=== PATIENT | female | born 1930 | race Hispanic/Latino ===

== ENCOUNTER 2016-11-19 10:34 | Emergency (ER) | payer MEDICARE ==
[2016-11-19 12:22] LABS: Basophils % (Auto) 0.2 % (0.0-1.8); Eosinophils % (Auto) 0.7 % (0.0-4.3); Hemoglobin 14.3 gm/dl (10.1-14.3); Mean Corpuscular HGB Conc 33 % (30-34); Mean Corpuscular Hemoglobin 32 pg (28-32); Mean Corpuscular Volume 95 fl (79-97); Platelet Count 143 K/mm3 (140-440); Red Blood Count 4.54 M/mm3 (3.65-5.03); Red Cell Distribution Width 12.8 % (13.2-15.2); White Blood Count 9.1 K/mm3 (4.5-11.0)
[2016-11-19 12:38] LABS: Alanine Aminotransferase 8 units/L (7-56); Albumin 3.9 g/dL (3.9-5); Albumin/Globulin Ratio 1.9 %; Alkaline Phosphatase 57 units/L (35-129); Anion Gap 14 mmol/L; BUN/Creatinine Ratio 24.28; Blood Urea Nitrogen 17 mg/dL (7-17); Calcium 9.2 mg/dL (8.4-10.2); Carbon Dioxide 30 mmol/L (22-30); Chloride 102.1 mmol/L (98-107); Glucose 104 mg/dL (65-100); Potassium 4.9 mmol/L (3.6-5.0); Sodium 141 mmol/L (137-145)
[2016-11-19 13:50] LABS: Bilirubin,Urine NEG (Negative); Blood,Urine SM (Negative); Ketones,Urine NEG (Negative); Leukocyte Esterase,Urine LG (Negative); Mucus,Urine FEW /HPF; Nitrite,Urine NEG (Negative); Protein,Urine <15 mg/dL mg/dL (Negative); Urobilinogen,Urine < 2.0 mg/dL (<2.0)
[2016-11-19] MEDS ORDERED: MACROBID PO ONE (14:02)
--- NOTE | 2016-11-19 14:03 | Emergency Department Report ---
ED Abdominal Pain HPI - General Chief Complaint: Back Pain/Injury Stated Complaint: ABD PAIN/BACK PAIN Time Seen by Provider: 11/19/16 11:53 Source: patient, EMS Mode of arrival: Stretcher Limitations: No Limitations - History of Present Illness Initial Comments: 86-year-old female with a past medical history of hypertension, atrial fibrillation on Xarelto, high cholesterol and previous hysterectomy presents to the hospital complaints of abdominal pain since 8 AM. Pain was in the right upper quadrant radiating to the back, moderate in intensity, constant, aching in nature. They have since resolved spontaneously without medication. She was sent by her food handler Dr Esquivel sent the pt to the ER for evaluation. Positive nausea and chills without vomiting, fever, melena, hematochezia, or diarrhea. No change in by mouth intake. Pain started prior to eating breakfast. Severity scale (0 -10): 4 - Related Data Home Medications Medication Instructions Recorded Confirmed Last Taken Calcium Carb/Vitamin D3/Vit K1 1 tab PO DAILY 11/19/16 11/19/16 11/18/16 [Citracal Soft Chew] Ergocalciferol (Vitamin D2) 1 tab PO DAILY 11/19/16 11/19/16 11/18/16 [Vitamin D2] Fish Oil 1 tab PO DAILY 11/19/16 11/19/16 11/18/16 Furosemide [Lasix] 20 mg PO 3XW 11/19/16 11/19/16 11/18/16 LORazepam [Ativan] 0.5 mg PO QHS 11/19/16 11/19/16 11/18/16 Lisinopril [Zestril] 5 mg PO QDAY 11/19/16 11/19/16 11/18/16 Previous Rx's Medication Instructions Recorded Last Taken Type Rivaroxaban [Xarelto] 20 mg PO QDAY #30 tablet 06/07/13 11/18/16 Rx Potassium Chloride [Klor-Con 8] 8 meq PO QDAY 30 Days 06/24/13 11/18/16 Rx Nitrofurantoin [place]/M-Cryst 100 mg PO Q12HR #10 capsule 11/19/16 Unknown Rx [Macrobid CAP] Ondansetron [Zofran Odt] 4 mg PO Q8HR PRN #20 tab.rapdis 11/19/16 Unknown Rx traMADol [Ultram 50 MG tab] 50 mg PO Q6HR PRN #20 tablet 11/19/16 Unknown Rx Allergies Allergy/AdvReac Type Severity Reaction Status Date / Time No Known Allergies Allergy Verified 06/16/13 17:37 ED Review of Systems ROS: Stated complaint: ABD PAIN/BACK PAIN Other details as noted in HPI Comment: All other systems reviewed and negative Other: Constitutional: No fevers chills Eyes: No eye pain visual changes ENT: No ear pain or throat pain Neck: Denies pain Respiratory: Denies cough wheezing shortness of breath Cardiovascular: Denies chest pain, palpitations, syncope GI: As per HPI : Denies dysuria Musculoskeletal: Denies back pain Skin: Denies rash, lesions, erythema Neurologic: Denies headache, numbness, weakness Psychiatric: Denies suicidal ideation, hallucinations ED Past Medical Hx - Past Medical History Previous Medical History?: Yes Hx Hypertension: Yes (pt takes HCTZ, and lisopril on and off depending on BP) Hx Heart Attack/AMI: No Hx Liver Disease: No Hx Renal Disease: No Hx Sickle Cell Disease: No Hx Seizures: No Hx Asthma: No Hx COPD: No Additional medical history: Elevated cholesterol. Atrial fibrillation - Surgical History Past Surgical History?: Yes Hx Pacemaker: No Hx Internal Defibrillator: No Additional Surgical History: hyster. 1970s - Social History Smoking Status: Never Smoker Substance Use Type: None - Medications Home Medications: Home Medications Medication Instructions Recorded Confirmed Last Taken Type Rivaroxaban [Xarelto] 20 mg PO QDAY #30 tablet 06/07/13 11/19/16 11/18/16 Rx Potassium Chloride [Klor-Con 8] 8 meq PO QDAY 30 Days 06/24/13 11/19/16 Rx Calcium Carb/Vitamin D3/Vit K1 1 tab PO DAILY 11/19/16 11/19/16 11/18/16 History [Citracal Soft Chew] Ergocalciferol (Vitamin D2) 1 tab PO DAILY 11/19/16 11/19/16 11/18/16 History [Vitamin D2] Fish Oil 1 tab PO DAILY 11/19/16 11/19/16 11/18/16 History Furosemide [Lasix] 20 mg PO 3XW 11/19/16 11/19/16 11/18/16 History LORazepam [Ativan] 0.5 mg PO QHS 11/19/16 11/19/16 11/18/16 History Lisinopril [Zestril] 5 mg PO QDAY 11/19/16 11/19/16 11/18/16 History Nitrofurantoin [place]/M-Cryst 100 mg PO Q12HR #10 capsule 11/19/16 Unknown Rx [Macrobid CAP] Ondansetron [Zofran Odt] 4 mg PO Q8HR PRN #20 tab.rapdis 11/19/16 Unknown Rx traMADol [Ultram 50 MG tab] 50 mg PO Q6HR PRN #20 tablet 11/19/16 Unknown Rx ED Physical Exam - General Limitations: No Limitations - Other Other exam information: General: No limitations, patient is alert in no acute distress Head exam: Atraumatic, normocephalic Eyes exam: Normal appearance ENT: Moist mucous membrane, normal oropharynx Neck exam: Normal inspection, full range of motion, no meningismus nontender Respiratory exam: Clear to auscultation bilateral, no wheezes, rales, crackles Cardiovascular: Irregular heart rhythm normal rate Abdomen: Soft, nondistended, and nontender, with normal bowel sounds, no rebound, or guarding Extremity: Full range of motion normal inspection no deformity Back: Normal Inspection, full range of motion, no tenderness Neurologic: Alert, oriented x3, cranial nerves intact, no motor or sensory deficit Psychiatric: normal affect, normal mood Skin: Warm, dry, intact ED Course Vital Signs 11/19/16 11:34 Temperature 98.1 F Pulse Rate 74 Respiratory 16 Rate Blood Pressure 165/78 [Right] O2 Sat by Pulse 97 Oximetry - Reevaluation(s) Reevaluation #1: 11/19/16 14:33 pt remained pain free in ED since my initial evaluation and declined pain medications ED Medical Decision Making - Lab Data Result diagrams: 11/19/16 12:03 11/19/16 12:03 Lab Results 11/19/16 11/19/16 11/19/16 Range/Units 12:03 12:03 12:03 WBC 9.1 (4.5-11.0) K/mm3 RBC 4.54 (3.65-5.03) M/mm3 Hgb 14.3 (10.1-14.3) gm/dl Hct 43.0 H (30.3-42.9) % MCV 95 (79-97) fl MCH 32 (28-32) pg MCHC 33 (30-34) % RDW 12.8 L (13.2-15.2) % Plt Count 143 (140-440) K/mm3 Lymph % (Auto) 11.1 L (13.4-35.0) % [place] % (Auto) 5.0 (0.0-7.3) % Eos % (Auto) 0.7 (0.0-4.3) % Baso % (Auto) 0.2 (0.0-1.8) % Lymph # 1.0 L (1.2-5.4) K/mm3 [place] # 0.5 (0.0-0.8) K/mm3 Eos # 0.1 (0.0-0.4) K/mm3 Baso # 0.0 (0.0-0.1) K/mm3 Seg Neutrophils % 83.0 H (40.0-70.0) % Seg Neutrophils # 7.5 (1.8-7.7) K/mm3 Sodium 141 (137-145) mmol/L Potassium 4.9 (3.6-5.0) mmol/L Chloride 102.1 (98-107) mmol/L Carbon Dioxide 30 (22-30) mmol/L Anion Gap 14 mmol/L BUN 17 (7-17) mg/dL Creatinine 0.7 (0.7-1.2) mg/dL Estimated GFR > 60 ml/min BUN/Creatinine Ratio 24.28 % Glucose 104 H (65-100) mg/dL Calcium 9.2 (8.4-10.2) mg/dL Total Bilirubin 1.00 (0.1-1.2) mg/dL AST 15 (5-40) units/L ALT 8 (7-56) units/L Alkaline Phosphatase 57 (35-129) units/L Total Protein 6.0 L (6.3-8.2) g/dL Albumin 3.9 (3.9-5) g/dL Albumin/Globulin Ratio 1.9 % Lipase 40 (13-60) units/L Urine Color (Yellow) Urine Turbidity (Clear) Urine pH (5.0-7.0) Ur Specific [place] (1.003-1.030) Urine Protein (Negative) mg/dL Urine Glucose (UA) (Negative) mg/dL Urine Ketones (Negative) mg/dL Urine Blood (Negative) Urine Nitrite (Negative) Urine Bilirubin (Negative) Urine Urobilinogen (<2.0) mg/dL Ur Leukocyte Esterase (Negative) Urine WBC (Auto) (0.0-6.0) /HPF Urine RBC (Auto) (0.0-6.0) /HPF U Epithel Cells (Auto) (0-13.0) /HPF Urine Mucus /HPF 11/19/16 Range/Units 13:36 WBC (4.5-11.0) K/mm3 RBC (3.65-5.03) M/mm3 Hgb (10.1-14.3) gm/dl Hct (30.3-42.9) % MCV (79-97) fl MCH (28-32) pg MCHC (30-34) % RDW (13.2-15.2) % Plt Count (140-440) K/mm3 Lymph % (Auto) (13.4-35.0) % [place] % (Auto) (0.0-7.3) % Eos % (Auto) (0.0-4.3) % Baso % (Auto) (0.0-1.8) % Lymph # (1.2-5.4) K/mm3 [place] # (0.0-0.8) K/mm3 Eos # (0.0-0.4) K/mm3 Baso # (0.0-0.1) K/mm3 Seg Neutrophils % (40.0-70.0) % Seg Neutrophils # (1.8-7.7) K/mm3 Sodium (137-145) mmol/L Potassium (3.6-5.0) mmol/L Chloride (98-107) mmol/L Carbon Dioxide (22-30) mmol/L Anion Gap mmol/L BUN (7-17) mg/dL Creatinine (0.7-1.2) mg/dL Estimated GFR ml/min BUN/Creatinine Ratio % Glucose (65-100) mg/dL Calcium (8.4-10.2) mg/dL Total Bilirubin (0.1-1.2) mg/dL AST (5-40) units/L ALT (7-56) units/L Alkaline Phosphatase (35-129) units/L Total Protein (6.3-8.2) g/dL Albumin (3.9-5) g/dL Albumin/Globulin Ratio % Lipase (13-60) units/L Urine Color Yellow (Yellow) Urine Turbidity Clear (Clear) Urine pH 6.0 (5.0-7.0) Ur Specific [place] 1.010 (1.003-1.030) Urine Protein <15 mg/dl (Negative) mg/dL Urine Glucose (UA) Neg (Negative) mg/dL Urine Ketones Neg (Negative) mg/dL Urine Blood Sm (Negative) Urine Nitrite Neg (Negative) Urine Bilirubin Neg (Negative) Urine Urobilinogen < 2.0 (<2.0) mg/dL Ur Leukocyte Esterase Lg (Negative) Urine WBC (Auto) 9.0 H (0.0-6.0) /HPF Urine RBC (Auto) 2.0 (0.0-6.0) /HPF U Epithel Cells (Auto) 1.0 (0-13.0) /HPF Urine Mucus Few /HPF - Radiology Data Radiology results: report reviewed (ultrasound abdomen: Cholelithiasis) - Medical Decision Making Patient has increased WBC and therefore we cover with Macrobid. Ultrasound positive for cholelithiasis without cholecystitis. Patient does not have any pain during ED stay. Will be covered with medication in case she experiences biliary colic and surgery referral. - Differential Diagnosis cholecystitis/lithiasis, PUD, pancreatitis, UTI Critical Care Time: No Critical care attestation.: If time is entered above; I have spent that time in minutes in the direct care of this critically ill patient, excluding procedure time. ED Disposition Clinical Impression: Cholelithiasis, Urine leukocytes increased, Chronic atrial fibrillation Disposition: DISCHARGED TO HOME OR SELFCARE Is pt being admited?: No Condition: Stable Instructions: Biliary Colic (ED), Urinary Tract Infection in Women (ED) Additional Instructions: Take the medication as prescribed. Return symptoms worsen. Follow-up with the surgeon provided to discuss possible removal of your gallbladder. Prescriptions: Nitrofurantoin [place]/M-Cryst [Macrobid CAP] 100 mg PO Q12HR #10 capsule Ondansetron [Zofran Odt] 4 mg PO Q8HR PRN #20 tab.rapdis PRN Reason: Nausea And Vomiting traMADol [Ultram 50 MG tab] 50 mg PO Q6HR PRN #20 tablet PRN Reason: Pain Referrals: PRIMARY CARE, [Primary Care Provider] - 3-5 Days MATT OWENS MD [Staff Physician] - 3-5 Days (surgeon ) Time of Disposition: 15:01
--- NOTE | 2016-11-19 14:13 | Ultrasound Report ---
ULTRASOUND ABDOMEN COMPLETE: Technique: Transabdominal ultrasound with color Doppler interrogation. History: Right upper quadrant abdominal pain. Findings: The liver is normal size, contour and echotexture. There are multiple shadowing gallstones within the gallbladder. Gallbladder wall thickness is borderline measuring 3 mm. No biliary dilatation or surrounding fluid. The visualized portions of the pancreas including the head and proximal body are within normal limits. The kidneys demonstrate no hydronephrosis or mass. Cortical thickness and echogenicity are within normal limits bilaterally. The spleen and aorta are within normal limits. No aneurysmal dilatation is noted. No ascites. The bladder is unremarkable. IMPRESSION: Cholelithiasis.
[2016-11-19 16:21] VITALS: BP 147/69
== END 2016-11-19 16:15 | disposition home or self-care (01) ==
LOC: ED 10:34
DX: K80.20 Calculus of gallbladder without cholecystitis without obstruction (principal); I48.2 Chronic atrial fibrillation; D72.829 Elevated white blood cell count, unspecified; I10 Essential (primary) hypertension; E78.00 Pure hypercholesterolemia, unspecified; Z90.710 Acquired absence of both cervix and uterus
CPT/HCPCS: 36415; 76700; 80053; 81001; 83690; 85025; 87076; 87086; 87186

== ENCOUNTER 2017-09-01 07:44 | Emergency (ER) | payer MEDICARE ==
[2017-09-01 08:32] LABS: Basophils % (Auto) 0.4 % (0.0-1.8); Eosinophils # (Auto) 0.2 K/mm3 (0.0-0.4); Eosinophils % (Auto) 2.7 % (0.0-4.3); Hematocrit 38.6 % (30.3-42.9); Lymphocytes # (Auto) 1.1 K/mm3 (1.2-5.4); Lymphocytes % (Auto) 18.1 % (13.4-35.0); Mean Corpuscular HGB Conc 34 % (30-34); Mean Corpuscular Hemoglobin 32 pg (28-32); Mean Corpuscular Volume 94 fl (79-97); Monocytes # (Auto) 0.4 K/mm3 (0.0-0.8); Platelet Count 190 K/mm3 (140-440); Red Blood Count 4.12 M/mm3 (3.65-5.03); Red Cell Distribution Width 13.7 % (13.2-15.2)
[2017-09-01] MEDS ORDERED: NORCO 5/325 PO ONE (08:43)
[2017-09-01 08:51] LABS: Alanine Aminotransferase 6 units/L (7-56); Albumin 3.5 g/dL (3.9-5); BUN/Creatinine Ratio 27; Blood Urea Nitrogen 19 mg/dL (7-17); Calcium 8.9 mg/dL (8.4-10.2); Hemolysis Index 7
--- NOTE | 2017-09-01 08:51 | Emergency Department Report ---
ED Female HPI - General Chief complaint: Urogenital-Female Stated complaint: BLOOD IN URINE Time Seen by Provider: 09/01/17 08:02 Source: patient, family, EMS Mode of arrival: Stretcher Limitations: Other - History of Present Illness Initial comments: Ms. Tree bonds is a pleasant 87-year-old female patient with history of atrial fibrillation on Xarelto. She experienced gradual onset of epigastric pain earlier this morning and yesterday evening. Pain then radiated to the suprapubic region. She now has intermittent left lower quadrant pain, mild in severity. Sharp in nature. She also notices hematuria. Denies dysuria. No history of kidney stones. No history of recent UTI. No previous history of hematuria. She does have cholelithiasis. Normally epigastric pain is related to gallstones. She recently finished 2 courses of antibiotics since . She was unable to recall the name of the first antibiotic. The second antibiotic was amoxicillin. She otherwise has been in good health. After I finished evalutation, PCP contacted me here in the ED. PCP stated that she finished Tamiflu, Levaquin and Augmentin recently. PCP was concerned for GI bleed. - Related Data Home Medications Medication Instructions Recorded Confirmed Last Taken Calcium Carb/Vitamin D3/Vit K1 1 tab PO DAILY 11/19/16 11/19/16 11/18/16 [Citracal Soft Chew] Ergocalciferol (Vitamin D2) 1 tab PO DAILY 11/19/16 11/19/16 11/18/16 [Vitamin D2] Fish Oil 1 tab PO DAILY 11/19/16 11/19/16 11/18/16 Furosemide [Lasix] 20 mg PO 3XW 11/19/16 11/19/16 11/18/16 LORazepam [Ativan] 0.5 mg PO QHS 11/19/16 11/19/16 11/18/16 Lisinopril [Zestril] 5 mg PO QDAY 11/19/16 11/19/16 11/18/16 Previous Rx's Medication Instructions Recorded Last Taken Type Rivaroxaban [Xarelto] 20 mg PO QDAY #30 tablet 06/07/13 11/18/16 Rx Potassium Chloride [Klor-Con 8] 8 meq PO QDAY 30 Days tablet 06/24/13 11/18/16 Rx Nitrofurantoin [place]/M-Cryst 100 mg PO Q12HR #10 capsule 11/19/16 Unknown Rx [Macrobid CAP] Ondansetron [Zofran Odt] 4 mg PO Q8HR PRN #20 tab.rapdis 11/19/16 Unknown Rx traMADol [Ultram 50 MG tab] 50 mg PO Q6HR PRN #20 tablet 11/19/16 Unknown Rx Allergies Allergy/AdvReac Type Severity Reaction Status Date / Time No Known Allergies Allergy Verified 06/16/13 17:37 ED Review of Systems ROS: Stated complaint: BLOOD IN URINE Other details as noted in HPI Comment: All other systems reviewed and negative Constitutional: denies: fever, malaise Respiratory: denies: cough Cardiovascular: denies: chest pain ED Past Medical Hx - Past Medical History Previous Medical History?: Yes Hx Hypertension: Yes (pt takes HCTZ, and lisopril on and off depending on BP) Hx Heart Attack/AMI: No Hx Liver Disease: No Hx Renal Disease: No Hx Sickle Cell Disease: No Hx Seizures: No Hx Asthma: No Hx COPD: No Additional medical history: Elevated cholesterol. Atrial fibrillation - Surgical History Hx Pacemaker: No Hx Internal Defibrillator: No Additional Surgical History: hyster. 1970s - Social History Smoking Status: Never Smoker Substance Use Type: None - Medications Home Medications: Home Medications Medication Instructions Recorded Confirmed Last Taken Type Rivaroxaban [Xarelto] 20 mg PO QDAY #30 tablet 06/07/13 11/19/16 11/18/16 Rx Potassium Chloride [Klor-Con 8] 8 meq PO QDAY 30 Days tablet 06/24/13 11/19/16 11/18/16 Rx Calcium Carb/Vitamin D3/Vit K1 1 tab PO DAILY 11/19/16 11/19/16 11/18/16 History [Citracal Soft Chew] Ergocalciferol (Vitamin D2) 1 tab PO DAILY 11/19/16 11/19/16 11/18/16 History [Vitamin D2] Fish Oil 1 tab PO DAILY 11/19/16 11/19/16 11/18/16 History Furosemide [Lasix] 20 mg PO 3XW 11/19/16 11/19/16 11/18/16 History LORazepam [Ativan] 0.5 mg PO QHS 11/19/16 11/19/16 11/18/16 History Lisinopril [Zestril] 5 mg PO QDAY 11/19/16 11/19/16 11/18/16 History Nitrofurantoin [place]/M-Cryst 100 mg PO Q12HR #10 capsule 11/19/16 Unknown Rx [Macrobid CAP] Ondansetron [Zofran Odt] 4 mg PO Q8HR PRN #20 tab.rapdis 11/19/16 Unknown Rx traMADol [Ultram 50 MG tab] 50 mg PO Q6HR PRN #20 tablet 11/19/16 Unknown Rx ED Physical Exam - General Limitations: Other General appearance: alert, in no apparent distress - Head Head exam: Present: atraumatic, normocephalic - Eye Eye exam: Present: normal appearance. Absent: scleral icterus, conjunctival injection, nystagmus Pupils: Present: normal accommodation - ENT ENT exam: Present: normal exam, normal orophraynx, mucous membranes moist - Neck Neck exam: Present: normal inspection. Absent: meningismus - Respiratory Respiratory exam: Present: normal lung sounds bilaterally. Absent: respiratory distress, wheezes - Cardiovascular Cardiovascular Exam: Present: regular rate, normal rhythm, normal heart sounds. Absent: systolic murmur, diastolic murmur, rubs, gallop - GI/Abdominal GI/Abdominal exam: Present: soft, normal bowel sounds. Absent: distended, tenderness, guarding, rebound - Extremities Exam Extremities exam: Present: normal inspection - Back Exam Back exam: Present: normal inspection. Absent: CVA tenderness (R), CVA tenderness (L) - Neurological Exam Neurological exam: Present: alert, oriented X3 - Psychiatric Psychiatric exam: Present: normal affect, normal mood - Skin Skin exam: Present: warm, dry, intact, normal color. Absent: rash ED Course Vital Signs 09/01/17 09/01/17 09/01/17 07:44 09:20 09:25 Temperature 98 F Pulse Rate 93 H Respiratory 16 14 Rate Blood Pressure 120/78 Blood Pressure [Left] O2 Sat by Pulse 99 98 99 Oximetry 09/01/17 09/01/17 09/01/17 09:30 09:32 09:56 Temperature 97.9 F Pulse Rate 80 Respiratory 14 Rate Blood Pressure 168/89 168/89 Blood Pressure 171/87 [Left] O2 Sat by Pulse 100 98 85 Oximetry 09/01/17 09/01/17 09/01/17 10:00 10:06 10:16 Temperature Pulse Rate 97 H 90 Respiratory 18 14 15 Rate Blood Pressure 167/82 167/82 Blood Pressure [Left] O2 Sat by Pulse 99 97 Oximetry 09/01/17 10:30 Temperature Pulse Rate 81 Respiratory 19 Rate Blood Pressure 154/80 Blood Pressure [Left] O2 Sat by Pulse 98 Oximetry ED Medical Decision Making - Lab Data Result diagrams: 09/01/17 08:17 09/01/17 08:17 Laboratory Results - last 24 hr 09/01/17 09/01/17 09/01/17 08:17 08:17 09:57 WBC 5.9 RBC 4.12 Hgb 13.0 Hct 38.6 MCV 94 MCH 32 MCHC 34 RDW 13.7 Plt Count 190 Lymph % (Auto) 18.1 [place] % (Auto) 7.0 Eos % (Auto) 2.7 Baso % (Auto) 0.4 Lymph # 1.1 L [place] # 0.4 Eos # 0.2 Baso # 0.0 Seg Neutrophils % 71.8 H Seg Neutrophils # 4.3 Sodium 139 Potassium 4.0 Chloride 104.0 Carbon Dioxide 26 Anion Gap 13 BUN 19 H Creatinine 0.7 Estimated GFR > 60 BUN/Creatinine Ratio 27 Glucose 101 H Calcium 8.9 Total Bilirubin 0.80 AST 12 ALT 6 L Alkaline Phosphatase 45 Total Protein 6.0 L Albumin 3.5 L Albumin/Globulin Ratio 1.4 Urine Color Red Urine Turbidity Clear Urine pH 6.0 Ur Specific [place] 1.010 Urine Protein 100 mg/dl Urine Glucose (UA) Neg Urine Ketones Neg Urine Blood Mod Urine Nitrite Neg Urine Bilirubin Neg Urine Urobilinogen < 2.0 Ur Leukocyte Esterase Neg Urine WBC (Auto) > 182.0 H Urine RBC (Auto) > 182.0 Urine WBC Clumps 3+ Urine Yeast (Bud[place]) 3+ Urine Sperm 2+ Laboratory Results - last 24 hr 09/01/17 09/01/17 09/01/17 08:17 08:17 09:57 WBC 5.9 RBC 4.12 Hgb 13.0 Hct 38.6 MCV 94 MCH 32 MCHC 34 RDW 13.7 Plt Count 190 Lymph % (Auto) 18.1 [place] % (Auto) 7.0 Eos % (Auto) 2.7 Baso % (Auto) 0.4 Lymph # 1.1 L [place] # 0.4 Eos # 0.2 Baso # 0.0 Seg Neutrophils % 71.8 H Seg Neutrophils # 4.3 Sodium 139 Potassium 4.0 Chloride 104.0 Carbon Dioxide 26 Anion Gap 13 BUN 19 H Creatinine 0.7 Estimated GFR > 60 BUN/Creatinine Ratio 27 Glucose 101 H Calcium 8.9 Total Bilirubin 0.80 AST 12 ALT 6 L Alkaline Phosphatase 45 Total Protein 6.0 L Albumin 3.5 L Albumin/Globulin Ratio 1.4 Urine Color Red Urine Turbidity Clear Urine pH 6.0 Ur Specific [place] 1.010 Urine Protein 100 mg/dl Urine Glucose (UA) Neg Urine Ketones Neg Urine Blood Mod Urine Nitrite Neg Urine Bilirubin Neg Urine Urobilinogen < 2.0 Ur Leukocyte Esterase Neg Urine WBC (Auto) > 182.0 H Urine RBC (Auto) > 182.0 Urine WBC Clumps 3+ Urine Yeast (Budding) 3+ Urine Sperm 2+ - Medical Decision Making Ms. Leavitt presents with hematuria. LLQ resolved spontaneously. She is pain free now. UA suggestive of hemorrhagic cystitis with pyuria and multiple red cells. PCP Dr. Flores will provide follow up. She will refer patient to urologist if needed. She requested ciprofloxacin. rx provided for ciprofloxacin Critical care attestation.: If time is entered above; I have spent that time in minutes in the direct care of this critically ill patient, excluding procedure time. ED Disposition Clinical Impression: Hemorrhagic cystitis Disposition: DC-01 TO HOME OR SELFCARE Is pt being admited?: No Does the pt Need Aspirin: No Condition: Stable Instructions: Urinary Tract Infection in Women (ED) Referrals: KETAN FLORES MD [Staff Physician] - 3-5 Days Time of Disposition: 11:39
--- NOTE | 2017-09-01 09:09 | Cat Scan Report ---
CT ABDOMEN PELVIS WITHOUT CONTRAST: HISTORY: Left lower quadrant abdominal pain, hematuria. COMPARISON: none. TECHNIQUE: Helical CT in 1.25mm intervals without IV contrast. Sagittal and coronal reconstructions. FINDINGS: Lung bases: Adequately aerated. Liver: Normal. Biliary system: There are 2 calcified gallstones within the gallbladder measuring approximately 1 cm. No evidence for biliary dilatation or inflammation. Pancreas: Normal. Spleen: Normal. Kidneys/ureters/bladder: The right kidney and collecting system are within normal limits. There are 2 stones measuring 3 mm and 6 mm in the mid left kidney. There are also 2 stones in the mid-distal left ureter. A 4 mm stone is identified at the level of S1 on image 232. A 5.6 mm stone is identified at the level of S4 on image 267. Minimal left hydroureter is identified. The bladder is poorly imaged secondary to streak artifact from right hip replacement. There is suggestion of a left ureterocele. The remainder of the bladder is unremarkable. Adrenal glands: Normal. Aorta: Normal caliber with mild calcifications. Intestines: There are scattered diverticula in the distal colon. No evidence for obstruction or inflammatory changes. Appendix: Assumed appendectomy. Pelvic viscera: Hysterectomy. The right adnexa is unremarkable. A 3.8 cm cyst is identified in the left adnexal. Ascites: None. Adenopathy: None. Musculoskeletal: Mild osteopenia with degenerative changes. Right hip replacement. No acute findings. IMPRESSION: Left nephrolithiasis. There are 2 calyceal stones in the left kidney. There are also 2 stones in the mid to distal left ureter with minimal left hydroureter. See above. The bladder is poorly imaged on this exam but there may be a left ureterocele. 3.8 cm left ovarian cyst. Cholelithiasis. Appendectomy and hysterectomy. Sigmoid diverticulosis.
[2017-09-01 10:53] LABS: Bilirubin,Urine NEG (Negative); Blood,Urine MOD (Negative); Color,Urine Red (Yellow); Nitrite,Urine NEG (Negative); Sperm,Urine 2+ /HPF (NP); Urobilinogen,Urine < 2.0 mg/dL (<2.0)
[2017-09-01 10:54] LABS: RBC,Urine > 182.0 /HPF (0.0-6.0); WBC,Urine > 182.0 /HPF (0.0-6.0)
[2017-09-01 12:06] VITALS: BP 156/80
== END 2017-09-01 12:05 | disposition home or self-care (01) ==
LOC: ED 07:44
DX: N30.90 Cystitis, unspecified without hematuria (principal); I10 Essential (primary) hypertension; E78.00 Pure hypercholesterolemia, unspecified
CPT/HCPCS: 36415; 74176; 80053; 81001; 85025; 87086; 99284

== ENCOUNTER 2018-02-23 07:10 | Day surgery (SDC) | payer MEDICARE ==
[~2018-02-23 07:10] MED LIST: ANCEF/STERILE WATER 2 GM/20 ML IV NR
[2018-02-23] MEDS ORDERED: NACL BACTERIOSTATIC INFILTRATI ONE (08:30)
[2018-02-23] MEDS ORDERED: LACTATED RINGERS 1,000 ML ONE (09:11)
--- NOTE | 2018-02-23 09:12 | Anesthesia Consultation ---
Anesthesia Consult and Med Hx Date of service: 02/23/18 - Airway Anesthetic Teeth Evaluation: Good ROM Head & Neck: Adequate Mental/Hyoid Distance: Adequate Mallampati Class: Class I Intubation Access Assessment: Good - Pulmonary Exam CTA: Yes - Cardiac Exam Cardiac Exam: No Murmur (irregular rhythm) - Pre-Operative Health Status ASA Pre-Surgery Classification: ASA3 Proposed Anesthetic Plan: General - Pulmonary Hx Smoking: No Hx Asthma: No Hx Respiratory Symptoms: No SOB: No COPD: No Hx Pneumonia: No Hx Sleep Apnea: No (DEWAYNE PRE SCREEN LOW RISK.) - Cardiovascular System Hx Hypertension: Yes (OFF MEDS X 4 YRS PER MD ORDERS; lasix 3x/wk last dose 3 days ago) Hx Coronary Artery Disease: Yes Hx Heart Attack/AMI: No Hx Angina: No Hx Percutaneous Transluminal Coronary Angioplasty (PTCA): No Hx Cardia Arrhythmia: Yes (A-fib, off xarelto x7 days; coags ordered per surgeon ) Hx Pacemaker: No Hx Internal Defibrillator: No Hx Valvular Heart Disease: No Hx Heart Murmur: No Hx Peripheral Vascular Disease: No - Central Nervous System Hx Neuromuscular Disorder: No Hx Seizures: No CVA: No Hx Back Pain: Yes Hx Psychiatric Problems: Yes (anxiety) - Gastrointestinal Hx Ulcer: No Hx Gastroesophageal Reflux Disease: No - Endocrine Hx Renal Disease: No (potassium level pending per surgeon) Hx Liver Disease: No Hx Insulin Dependent Diabetes: No Hx Non-Insulin Dependent Diabetes: No Hx Thyroid Disease: No - Hematic Hx Anemia: No Hx Sickle Cell Disease: No - Other Systems Hx Alcohol Use: No Hx Substance Use: No Hx Cancer: Yes (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 Denies CP or SOB on exertion.
[2018-02-23] MEDS ORDERED: DIPRIVAN 10 MG/ML IV ONE (09:56)
[2018-02-23] MEDS ORDERED: SUBLIMAZE ONE (09:58)
[2018-02-23] MEDS ORDERED: LACTATED RINGERS 1,000 ML IV SCH (10:00)
[2018-02-23 10:24] LABS: INR 0.93 (0.87-1.13)
[2018-02-23] MEDS ORDERED: ZOFRAN ONE (10:43)
[2018-02-23] MEDS ORDERED: XYLOCAINE MPF 2% ONE (10:43)
--- NOTE | 2018-02-23 11:35 | Short Stay Summary ---
Short Stay Documentation Date of service: 02/23/18 - History H&P: obtained from office - Allergies and Medications Current Medications: Allergies ferrous fumarate [From Centrum] Allergy (Verified 02/23/18 09:25) Hives ferrous gluconate [From Centrum] Allergy (Verified 02/23/18 09:25) Hives folic acid [From Centrum] Allergy (Verified 02/23/18 09:25) Hives lutein [From Centrum] Allergy (Verified 02/23/18 09:25) Hives lycopene [From Centrum] Allergy (Verified 02/23/18 09:25) Hives multivit with calcium, iron, and other minerals [From Centrum] Allergy ( Verified 02/23/18 09:25) Hives multivitamin [From Centrum] Allergy (Verified 02/23/18 09:25) Hives multivitamin with iron,other minerals [From Centrum] Allergy (Verified 02/23/18 09:25) Hives multivitamin with minerals [From Centrum] Allergy (Verified 02/23/18 09:25) Hives Home Medications Medication Instructions Recorded Confirmed Last Taken Type Rivaroxaban [Xarelto] 20 mg PO QDAY #30 tablet 06/07/13 02/23/18 02/17/18 Rx Furosemide [Lasix] 20 mg PO 3XW 11/19/16 02/23/18 02/20/18 History LORazepam [Ativan] 0.5 mg PO PRN PRN 11/19/16 02/23/18 02/20/18 History Ezetimibe [Zetia] 10 mg PO QDAY 02/17/18 02/23/18 02/21/18 History Potassium Chloride [Klor-Con 8] 8 meq PO 3XW 02/17/18 02/23/18 02/20/18 History Active Medications Cefazolin Sodium (Ancef/Sterile Water 2 Gm/20 Ml) 2 gm IV PREOP NR Stop: 02/23/18 23:59 Lactated Ringer's (Lactated Ringers) 1,000 mls @ 100 mls/hr IV DIRECT CHANG Last Admin: 02/23/18 09:15 Dose: 100 mls/hr - Brief post op/procedure progress note Date of procedure: 02/23/18 Pre-op diagnosis: left ureteral stone Post-op diagnosis: other (left ureterocele, left renal stone) Procedure: cysto, rpg, meatotomy, ureteroscopy, laser, stent with external string Anesthesia: PATRICK Surgeon: FRANCISCO SMART Estimated blood loss: none Condition: stable - Hospital course Hospital course: jed gerardo,post op info on chart - Disposition Condition at discharge: Stable Disposition: DC-01 TO HOME OR SELFCARE Short Stay Discharge Plan Follow up with: KETAN FLORES MD [Primary Care Provider] - 7 Days
[2018-02-23] MEDS ORDERED: NORCO 5/325 PO PRN (12:41)
[2018-02-23 12:58] VITALS: BP 179/84
--- NOTE | 2018-02-23 13:10 | Operative Report ---
PREOPERATIVE DIAGNOSIS: Left distal ureteral stone. POSTOPERATIVE DIAGNOSES: Left distal ureteral stone. SECONDARY DIAGNOSES: Ureterocele, left ureterocele, left renal stones. PROCEDURE: Cystoscopy, bilateral retrograde pyelograms, left ureteral meatotomy, left ureteroscopy, holmium laser lithotripsy, double-J stent (6-Cambodian 24 cm with an external string). SURGEON: Danny Alvares MD ANESTHESIA: General. ESTIMATED BLOOD LOSS: Minimal. FLUIDS: Crystalloid. COMPLICATIONS: No complications. INDICATIONS: This patient is an 87-year-old female seen in the office for kidney stones. CT of abdomen and pelvis revealed a distal left ureteral stone, positive gallstone, and a 3 mm renal stone. Discussed options. The patient has a history of heart disease, was cleared by Dr. Kieran Lee and presents now for intervention. DESCRIPTION OF PROCEDURE: The patient was taken to the operative suite, placed in a supine position. After adequate general anesthesia, placed in a dorsal lithotomy position, prepped and draped in a sterile fashion. Pancystourethroscopy was performed with 22-Cambodian Storz cystoscope. No bladder pathology. Right ureteral orifice was gaping. Right retrograde pyelogram was obtained with an 8 Cambodian Geraldo catheter and 8 mL of contrast. No filling defects or obstruction. Left ureteral orifice was pinpoint and obvious ureterocele. After multiple attempts, I was able to cannulate with a wire, but was not able to advance up the ureter. Meatotomy of the stricture was performed, the second, and then there was another area that was stenotic, I was finally able to cannulate. I did retrograde, followed by a 0.035 Glidewire x 2. Actually, 4 mm stone could be appreciated in the mid kidney on the left side. Flexible ureteroscopy up to the renal pelvis was performed. Several small stones could be appreciated. Using a 200 micron holmium laser fiber was used, holmium lithotripsy starting at 4 davidson going up to 6 dvaidson with fragmentation of the stones. Attempts to remove with Helen basket was unsuccessful; however, now that the ureterocele was removed, the ureter had a fairly normal caliber and should be able to pass the fragments. A 6-Cambodian 24 cm double-J stent with an external string was left indwelling. She was extubated and taken to recovery room. She will go home on [employer]. [facility]# [id number] LINDEN/OSMANI
--- NOTE | 2018-02-24 07:29 | Fluoroscopy Report ---
FLUOROSCOPY RETROGRADE UROGRAPHY: HISTORY: Left renal stone, left ureterocele. FINDINGS: Fluoroscopy was provided by radiology during retrograde urography by the urologist. 6 fluoroscopic images were captured. The CT abdomen and pelvis without contrast dated 09/01/17 was again reviewed. The right retrograde pyelogram is normal. Left retrograde pyelogram images demonstrate a 3.0 x 1.5 cm left ureterocele at the left UVJ. Per the procedural notes, left renal stones were seen. A holmium laser was utilized to break up the stones. A left ureteral stent was placed which adequately drains the left collecting system on the final images. Left ureteral meatotomy was also performed. Please correlate with the procedural report as needed. IMPRESSION: Left ureterocele. Left renal stones. Left ureteral stent placement.
== END 2018-02-23 13:41 | disposition home or self-care (01) ==
LOC: OR 07:10
PROVIDERS: ATTEND Urology
DX: N20.0 Calculus of kidney (principal); N13.5 Crossing vessel and stricture of ureter without hydronephrosis; I48.91 Unspecified atrial fibrillation; F41.9 Anxiety disorder, unspecified; I25.10 Atherosclerotic heart disease of native coronary artery without angina pectoris; I10 Essential (primary) hypertension; E78.00 Pure hypercholesterolemia, unspecified; Z79.01 Long term (current) use of anticoagulants; Z90.710 Acquired absence of both cervix and uterus; Z85.828 Personal history of other malignant neoplasm of skin; Z98.890 Other specified postprocedural states
CPT/HCPCS: 36415; 52290; 52356; 74420; 84132; 85610; 85730; C1758; C1769; C2617; J0690; J2405; J2704; J3010; J7120; Q9967

== ENCOUNTER 2020-07-12 16:29 | Emergency (ER) | payer MEDICARE ==
[2020-07-12 17:13] VITALS: BP 123/57
[2020-07-12 17:36] LABS: Basophils % (Auto) 0.1 % (0.0-1.8); Hematocrit 38.9 % (30.3-42.9); Hemoglobin 13.4 gm/dl (10.1-14.3); Lymphocytes # (Auto) 0.8 K/mm3 (1.2-5.4); Mean Corpuscular HGB Conc 34 % (30-34); Mean Corpuscular Volume 95 fl (79-97); Monocytes # (Auto) 0.7 K/mm3 (0.0-0.8); Monocytes % (Auto) 9.1 % (0.0-7.3); Platelet Count 163 K/mm3 (140-440); Red Blood Count 4.08 M/mm3 (3.65-5.03); Red Cell Distribution Width 12.1 % (13.2-15.2)
[2020-07-12 17:51] LABS: Albumin 3.2 g/dL (3.9-5); Calcium 8.3 mg/dL (8.4-10.2)
--- NOTE | 2020-07-12 19:49 | Event Note ---
ED Screening Note ED Screening Note: pt presents for a cough began a couple of days ago states she has generalized weakness and fatigue pt states she also began having low back pain no fever, chills, v/d, SOB PMHx afib and HLD is on xaretlo This initial assessment/diagnostic orders/clinical plan/treatment(s) is/are subject to change based on patients health status, clinical progression and re- assessment by fellow clinical providers in the ED. Further treatment and workup at subsequent clinical providers discretion. Patient/guardian urged not to elope from the ED as their condition may be serious if not clinically assessed and managed. Initial orders include: labs, EKG, CXR, CT
--- NOTE | 2020-07-12 20:34 | XRay Report ---
CHEST 2 VIEWS INDICATION: MAIN. COMPARISON: 06/17/2013 FINDINGS: Support devices: None. Heart: Within normal limits. Lungs: Chronic lung disease is present Pleura: No significant pleural effusion. No pneumothorax. Additional findings: None. IMPRESSION: 1. No acute findings. Signer Name: Boo Lopez MD Signed: 07/12/2020 8:29 PM Workstation Name: [id number][id number]
[2020-07-12 20:39] LABS: INR 1.29 (0.87-1.13)
--- NOTE | 2020-07-12 20:52 | Cat Scan Report ---
CT LUMBAR SPINE WITHOUT CONTRAST HISTORY: Back pain COMPARISON: None TECHNIQUE: CT images of the lumbar spine were obtained without contrast. Sagittal and coronal reform ats were post-processed.All CT scans at this location are performed using CT dose reduction for ALARA by means of automated exposure control. CONTRAST: None. FINDINGS: Alignment: Normal. Mild rotatory levoscoliosis Vertebrae:No significant abnormality. No fracture. Disc Spaces: T11-T12: Normal T12-L1: Normal L1-L2: Nonlateralizing shallow disc protrusion; ligamentous hypertrophy; neuroforamina are normal L2-L3: Significant thecal sac stenoses due to prominent midline bony spur and ligamentous hypertrophy ; bridging osteophyte on the left side L3-L4: Right lateral listhesis of L3 over L4; moderate thecal sac stenoses due to broad-based disc pr otrusion and marked ligamentous hypertrophy; lateral recess stenoses L4-L5: Loss of disc height on the right side with bridging osteophyte; moderate thecal sac stenoses d ue to broad-based disc protrusion and ligamentous hypertrophy L5-S1: Loss of disc height; facet joint hypertrophic changes; bony spur in the midline; marked left l ateral recess stenoses Facet Joints:No significant abnormality. Additional Findings: None IMPRESSION: Significant thecal sac stenoses at L2-L3 disc level due to midline bony spur Moderate thecal sac stenoses at L3-L4 and L4-L5 disc level due to combination of disc protrusion and marked ligamentous hypertrophy Marked stenoses of the left lateral recess of the dural sac at L5-S1 disc level due to facet hypertro phy and bony spur Signer Name: Julio Hutchison MD Signed: 07/12/2020 8:48 PM Workstation Name: [id number]
[2020-07-13] MEDS ORDERED: SODIUM CHLORIDE 0.9% 500 ML 500 ML IV ONE (02:42)
--- NOTE | 2020-07-13 03:12 | Emergency Department Report ---
- General Chief complaint: Weakness Stated complaint: WEAKNESS Time Seen by Provider: 07/12/20 19:47 Source: patient, EMS Mode of arrival: Wheelchair Limitations: No Limitations - History of Present Illness Initial comments: 89-year-old female presents the ED with generalized weakness, cough, for the past 3 days. Patient had an outpatient COVID-19 test, but has not rec eived the results. Denies any fever, sick contacts or recent travels. She does have history of CHF, hypertension, A. fib on anticoagulations. She denies any falls, does have back pain, chronically, which seems to be worse lately. No new injuries. No chest pain or shortness of breath, no focal weakness. NIH score 0. MD Complaint: generalized weakness -: Gradual, days(s) (5) Location: generalized Severity: mild Severity scale (0 -10): 5 Quality: sharp Consistency: constant Improves with: none Worsens with: none Associated Symptoms: denies: chest pain, confusion, dark stools, diaphoresis, dysuria, fever/chills, headaches, loss of appetite, nausea/vomiting, myalgias - Related Data Home Medications Medication Instructions Recorded Confirmed Last Taken Furosemide [Lasix] 20 mg PO 3XW 11/19/16 02/23/18 02/20/18 LORazepam [Ativan] 0.5 mg PO PRN PRN 11/19/16 02/23/18 02/20/18 Ezetimibe [Zetia] 10 mg PO QDAY 02/17/18 02/23/18 02/21/18 Potassium Chloride [Klor-Con 8] 8 meq PO 3XW 02/17/18 02/23/18 02/20/18 Previous Rx's Medication Instructions Recorded Last Taken Type Rivaroxaban [Xarelto] 20 mg PO QDAY #30 tablet 06/07/13 02/17/18 Rx Albuterol Sulfate [Proair 90 mcg IH 4XD PRN #1 [email or web address] 07/13/20 Unknown Rx Respiclick] Allergies Allergy/AdvReac Type Severity Reaction Status Date / Time ferrous fumarate Allergy Hives Verified 07/12/20 17:04 [From Centrum] ferrous gluconate Allergy Hives Verified 07/12/20 17:04 [From Centrum] folic acid [From Centrum] Allergy Hives Verified 07/12/20 17:04 lutein [From Centrum] Allergy Hives Verified 07/12/20 17:04 lycopene [From Centrum] Allergy Hives Verified 07/12/20 17:04 multivit with calcium, iron, Allergy Hives Verified 07/12/20 17:04 and other minerals [From Centrum] multivitamin [From Centrum] Allergy Hives Verified 07/12/20 17:04 multivitamin with iron,other Allergy Hives Verified 07/12/20 17:04 minerals [From Centrum] multivitamin with minerals Allergy Hives Verified 07/12/20 17:04 [From Centrum] ED Review of Systems ROS: Stated complaint: WEAKNESS Other details as noted in HPI Constitutional: denies: chills, fever Eyes: denies: eye pain, eye discharge, vision change ENT: denies: ear pain, throat pain Respiratory: denies: cough, shortness of breath, wheezing Cardiovascular: denies: chest pain, palpitations Endocrine: no symptoms reported Gastrointestinal: denies: abdominal pain, nausea, diarrhea Genitourinary: denies: urgency, dysuria, discharge Musculoskeletal: back pain. denies: joint swelling, arthralgia Skin: denies: rash, lesions Neurological: weakness. denies: headache, paresthesias Psychiatric: denies: anxiety, depression Hematological/Lymphatic: denies: easy bleeding, easy bruising ED Past Medical Hx - Past Medical History Hx Hypertension: Yes (OFF MEDS X 4 YRS PER MD ORDERS; lasix 3x/wk last dose 3 days ago) Hx Heart Attack/AMI: No Hx Liver Disease: No Hx Renal Disease: No (potassium level pending per surgeon) Hx Sickle Cell Disease: No Hx Seizures: No Hx Kidney Stones: Yes Hx Asthma: No Hx COPD: No Hx HIV: No Additional medical history: Elevated cholesterol. Atrial fibrillation - Surgical History Hx Pacemaker: No Hx Internal Defibrillator: No Additional Surgical History: hyster. 1970s - Social History Smoking Status: Never Smoker Substance Use Type: None - Medications Home Medications: Home Medications Medication Instructions Recorded Confirmed Last Taken Type Rivaroxaban [Xarelto] 20 mg PO QDAY #30 tablet 06/07/13 02/23/18 02/17/18 Rx Furosemide [Lasix] 20 mg PO 3XW 11/19/16 02/23/18 02/20/18 History LORazepam [Ativan] 0.5 mg PO PRN PRN 11/19/16 02/23/18 02/20/18 History Ezetimibe [Zetia] 10 mg PO QDAY 02/17/18 02/23/18 02/21/18 History Potassium Chloride [Klor-Con 8] 8 meq PO 3XW 02/17/18 02/23/18 02/20/18 History Albuterol Sulfate [Proair 90 mcg IH 4XD PRN #1 aer.[email or web address] 07/13/20 Unknown Rx Respiclick] ED Physical Exam - General Limitations: No Limitations General appearance: alert, in no apparent distress - Head Head exam: Present: atraumatic, normocephalic - Eye Eye exam: Present: normal appearance - ENT ENT exam: Present: mucous membranes moist - Neck Neck exam: Present: normal inspection - Respiratory Respiratory exam: Present: normal lung sounds bilaterally. Absent: respiratory distress - Cardiovascular Cardiovascular Exam: Present: regular rate, normal rhythm. Absent: systolic murmur, diastolic murmur, rubs, gallop - GI/Abdominal GI/Abdominal exam: Present: soft, normal bowel sounds - Extremities Exam Extremities exam: Present: normal inspection - Back Exam Back exam: Present: normal inspection - Neurological Exam Neurological exam: Present: alert, oriented X3 - Psychiatric Psychiatric exam: Present: normal affect, normal mood - Skin Skin exam: Present: warm, dry, intact, normal color. Absent: rash - Assessment Assessment Interval: Baseline - Level of Consciousness 1a. Level of Consciousness: alert/keenly responsive - LOC Questions 1b. LOC Questions: answers both correctly - LOC Command 1c. LOC Commands: performs tasks correctly - Best Gaze 2. Best Gaze: normal - Visual 3. Visual: no visual loss - Facial Palsy 4. Facial Palsy: normal symmetrical movement - Motor Arm 5a. Motor Arm Left: no drift 5b. Motor Arm Right: no drift - Motor Leg 6a. Motor Leg Left: no drift 6b. Motor Leg Right: no drift - Limb Ataxia 7. Limb Ataxia: absent - Sensory 8. Sensory: normal - Best Language 9. Best Language: no aphasia - Dysarthria 10. Dysarthria: normal - Extinction and Inattention 11. Extinction/Inattention: no abnormality - Scoring Total Score: 0 Stroke Severity: No Stroke Symptoms ED Course Vital Signs 07/12/20 17:12 Temperature 99.6 F Pulse Rate 86 Respiratory 18 Rate Blood Pressure 123/57 [Right] O2 Sat by Pulse 94 Oximetry ED Medical Decision Making - Lab Data Result diagrams: 07/12/20 17:15 07/12/20 17:15 - EKG Data -: EKG Interpreted by Me EKG shows normal: sinus rhythm Rate: normal - EKG Data When compared to previous EKG there are: no significant change - Radiology Data Radiology results: report reviewed - Medical Decision Making ct lspine explained to patient, need f/u with back m.d. advised awaiting on covid result, return to ER if worsens. she is not lethargic, not requiring oxygen, will d/c home. - Differential Diagnosis weakness, uri, covid, Critical care attestation.: If time is entered above; I have spent that time in minutes in the direct care of this critically ill patient, excluding procedure time. ED Disposition Clinical Impression: Weakness, Hyponatremia, Viral URI with cough Disposition: DC-01 TO HOME OR SELFCARE Is pt being admited?: No Does the pt Need Aspirin: No Condition: Stable Prescriptions: Albuterol Sulfate [Proair Respiclick] 90 mcg IH 4XD PRN #1 aer.ba PRN Reason: Wheezing Referrals: PRIMARY CARE, [Primary Care Provider] - 3-5 Days
== END 2020-07-13 04:30 | disposition home or self-care (01) ==
LOC: ED 16:29
DX: J06.9 Acute upper respiratory infection, unspecified (principal); B97.89 Other viral agents as the cause of diseases classified elsewhere; R05 Cough; E87.1 Hypo-osmolality and hyponatremia; R53.1 Weakness; I10 Essential (primary) hypertension; Z98.890 Other specified postprocedural states; Z79.899 Other long term (current) drug therapy; Z88.8 Allergy status to other drugs, medicaments and biological substances
CPT/HCPCS: 36415; 71046; 72131; 80053; 82550; 82962; 83735; 83880; 84484; 85025; 85610; 85730; 93005; 99285; J7040